=== PATIENT | female | born 1975 | race Caucasian/White ===

== ENCOUNTER 2018-05-17 07:46 | Inpatient (IN) | payer OTHER ==
[~2018-05-17] VITALS: Ht 149.9 cm; Wt 54.4 kg
[~2018-05-17 07:46] MED LIST: IRO PO
[2018-05-18] MEDS ORDERED: IRON325 MG PO (07:56)
[2018-05-21] MEDS ORDERED: PERCOCET 5-3251 EACH PO (08:15)
== END 2018-05-21 09:35 | DRG 743 ==
LOC: O/R 05-18 06:10 → OB/GYN 05-18 07:00
PROVIDERS: Specialist
PROC: 0UT90ZZ Resection of Uterus, Open Approach (ICD-10-PCS; principal; 2018-05-18 07:00)
DX: D25.1 Intramural leiomyoma of uterus (principal); D25.2 Subserosal leiomyoma of uterus; N84.0 Polyp of corpus uteri

== ENCOUNTER 2018-11-10 10:21 | Outpatient (CLI) | payer OTHER ==
[~2018-11-10 10:21] MED LIST changes: +IRON325 MG PO; +PERCOCET 5-3251 EACH PO
== END 2018-11-10 10:28 | disposition home or self-care (01) ==
LOC: LAB 10:21
DX: D50.0 Iron deficiency anemia secondary to blood loss (chronic) (principal); D51.1 Vitamin B12 deficiency anemia due to selective vitamin B12 malabsorption with proteinuria; N93.8 Other specified abnormal uterine and vaginal bleeding; D25.9 Leiomyoma of uterus, unspecified; E04.0 Nontoxic diffuse goiter; D51.8 Other vitamin B12 deficiency anemias; I10 Essential (primary) hypertension; D51.0 Vitamin B12 deficiency anemia due to intrinsic factor deficiency

== ENCOUNTER → 2022-12-14 08:14 | Outpatient (CLI) | payer OTHER | END | disposition home or self-care (01) | LOC: LAB 08:14 | PROVIDERS: ATTEND Internal Medicine Hematology & Oncology | DX: D50.8 Other iron deficiency anemias (principal); I10 Essential (primary) hypertension; R74.02 Elevation of levels of lactic acid dehydrogenase [LDH]; K76.89 Other specified diseases of liver; R94.5 Abnormal results of liver function studies; K76.9 Liver disease, unspecified; B19.9 Unspecified viral hepatitis without hepatic coma; D51.1 Vitamin B12 deficiency anemia due to selective vitamin B12 malabsorption with proteinuria; D50.0 Iron deficiency anemia secondary to blood loss (chronic); K75.81 Nonalcoholic steatohepatitis (NASH); N93.8 Other specified abnormal uterine and vaginal bleeding; D25.9 Leiomyoma of uterus, unspecified; E04.0 Nontoxic diffuse goiter; K29.40 Chronic atrophic gastritis without bleeding; K80.10 Calculus of gallbladder with chronic cholecystitis without obstruction ==

== ENCOUNTER 2024-08-09 08:56 | Outpatient (CLI) | payer OTHER ==
[2024-08-09 09:39] LABS: HEMATOCRIT 38.2 % (36.0-45.00); HEMOGLOBIN 13.2 g/dL (12.0-15.00); MEAN CORPUSCULAR HEMOGLOBIN 30.3 pg (27.00-32.0); MEAN CORPUSCULAR HGB CONC 34.5 g/dl (32.0-36.0); PLATELET COUNT 275 K/uL (150-450); RED BLOOD COUNT 4.35 M/uL (4.00-6.00); RED CELL DISTRIBUTION WIDTH 13.7 % (11.5-14.5)
[2024-08-09 10:28] LABS: ALBUMIN 4.4 gm/dL (3.4-5.0); BILIRUBIN TOTAL 0.48 mg/dL (0.3-1.2); CALCIUM 9.5 mg/dL (8.5-10.1); CREATININE SERUM 0.59 mg/dL (0.55-1.02); GFR 108.33; GLOBULINA 3.5 G/DL (2.4-3.5); POTASSIUM 4.03 mEq/L (3.5-5.1); TOTAL PROTEIN 7.9 gm/dL (6.4-8.2)
[2024-08-09 11:59] LABS: PLATELET ESTIMATE NORMAL (NORMAL)
== END 2024-08-09 08:57 | disposition home or self-care (01) ==
LOC: LAB 08:56
PROVIDERS: ATTEND Internal Medicine Hematology & Oncology
DX: D51.1 Vitamin B12 deficiency anemia due to selective vitamin B12 malabsorption with proteinuria (principal); K75.81 Nonalcoholic steatohepatitis (NASH); N93.8 Other specified abnormal uterine and vaginal bleeding; D30.01 Benign neoplasm of right kidney; K29.40 Chronic atrophic gastritis without bleeding; R94.5 Abnormal results of liver function studies; K80.10 Calculus of gallbladder with chronic cholecystitis without obstruction; N28.89 Other specified disorders of kidney and ureter; D50.0 Iron deficiency anemia secondary to blood loss (chronic); D25.9 Leiomyoma of uterus, unspecified; E04.0 Nontoxic diffuse goiter; D18.03 Hemangioma of intra-abdominal structures; D72.818 Other decreased white blood cell count; K76.0 Fatty (change of) liver, not elsewhere classified; D50.8 Other iron deficiency anemias; I10 Essential (primary) hypertension; R74.02 Elevation of levels of lactic acid dehydrogenase [LDH]; K76.89 Other specified diseases of liver; R79.9 Abnormal finding of blood chemistry, unspecified; R74.8 Abnormal levels of other serum enzymes; K76.9 Liver disease, unspecified

== ENCOUNTER 2024-12-28 08:53 | Outpatient (CLI) | payer OTHER ==
[2024-12-28 09:56] LABS: HEMATOCRIT 39.9 % (36.0-45.00); HEMOGLOBIN 13.1 g/dL (12.0-15.00); MEAN CELL VOLUME 90.7 fL (80.00-100.00); MEAN CORPUSCULAR HEMOGLOBIN 29.9 pg (27.00-32.0); MEAN CORPUSCULAR HGB CONC 32.9 g/dl (32.0-36.0); PLATELET COUNT 262 K/uL (150-450); RED BLOOD COUNT 4.39 M/uL (4.00-6.00); RED CELL DISTRIBUTION WIDTH 13.5 % (11.5-14.5)
[2024-12-28 10:32] LABS: ALBUMIN 4.2 gm/dL (3.4-5.0); BILIRUBIN TOTAL 0.31 mg/dL (0.3-1.2); CALCIUM 9.9 mg/dL (8.5-10.1); CREATININE SERUM 0.48 mg/dL (0.55-1.02); FERRITIN 117.8 NG/ML (8-252); GFR 137.46; GLOBULINA 3.6 G/DL (2.4-3.5); POTASSIUM 4.88 mEq/L (3.5-5.1); TOTAL PROTEIN 7.8 gm/dL (6.4-8.2)
[2024-12-29 09:20] LABS: PLATELET ESTIMATE NORMAL (NORMAL)
[2024-12-30 11:04] LABS: FOLIC ACID 10.35 ng/ml (4.78-20)
== END 2024-12-28 08:55 | disposition home or self-care (01) ==
LOC: LAB 08:53
PROVIDERS: ATTEND Internal Medicine Hematology & Oncology
DX: D51.1 Vitamin B12 deficiency anemia due to selective vitamin B12 malabsorption with proteinuria (principal); K75.81 Nonalcoholic steatohepatitis (NASH); N93.8 Other specified abnormal uterine and vaginal bleeding; D30.01 Benign neoplasm of right kidney; K29.40 Chronic atrophic gastritis without bleeding; R94.5 Abnormal results of liver function studies; K80.10 Calculus of gallbladder with chronic cholecystitis without obstruction; N28.89 Other specified disorders of kidney and ureter; D50.0 Iron deficiency anemia secondary to blood loss (chronic); D25.9 Leiomyoma of uterus, unspecified; E04.0 Nontoxic diffuse goiter; D18.03 Hemangioma of intra-abdominal structures; D72.818 Other decreased white blood cell count; K76.0 Fatty (change of) liver, not elsewhere classified; D50.8 Other iron deficiency anemias; I10 Essential (primary) hypertension; R74.02 Elevation of levels of lactic acid dehydrogenase [LDH]; K76.89 Other specified diseases of liver; R74.8 Abnormal levels of other serum enzymes; K76.9 Liver disease, unspecified